=== PATIENT | female | born 1960 | race Caucasian/White ===

== ENCOUNTER → 2017-02-19 | Outpatient (CLI) | payer BC, SELFPAY | END | disposition home or self-care (01) | LOC: RAD.S 08:00 | DX: R10.9 Unspecified abdominal pain (principal); K80.80 Other cholelithiasis without obstruction; K76.0 Fatty (change of) liver, not elsewhere classified ==

== ENCOUNTER 2017-03-03 03:05 | Emergency (ER) | payer BC, SELFPAY ==
--- NOTE | 2017-03-03 19:21 | ER ---
ADMIT: 03/03/2017 RM/LOC: ER [facility] MR#: [id number] [facility] [address] [place] [id number] MARGRET BUTLER [address] [place] [address] Emergency Room Report SEX: F AGE: 56 : 1960 DATE: 03/03/2017 The patient is a 56-year-old Monegasque-speaking female, complaining of right upper quadrant pain, associated with nausea and vomiting intermittently for the past month. Ultrasound on February 19 showed multiple stones but negative Barnard's sign. The patient does admit to biliary colic symptoms with high fat, high-protein foods. Exam remarkable for moderately uncomfortable, afebrile obese female, tender right upper quadrant. Normal CBC, CMP, lipase. Elevated CRP of 1.17. Normal lactic 1.7. UA showed 1+ leukocyte esterase and [address] unremarkable. The patient was given Zofran, Toradol, Dilaudid with marked improvement. Home with low-fat and low-protein diet, hydrocodone 5/325 as needed, #20 plus #6, Macrobid 50 mg b.i.d., #20. Follow up with Dr. Edgar next week. Kavin Pulido MD/ ralph JOB #: [id number] CC: Kavin Pulido MD, Attending Physician Laura Dominguez, Family Physician Radha Edgar MD
== END 2017-03-03 06:21 | disposition home or self-care (01) ==
LOC: ER 03:05
DX: K80.50 Calculus of bile duct without cholangitis or cholecystitis without obstruction (principal); N39.0 Urinary tract infection, site not specified; I10 Essential (primary) hypertension; E11.9 Type 2 diabetes mellitus without complications; Z88.0 Allergy status to penicillin; Z79.4 Long term (current) use of insulin; Z79.899 Other long term (current) drug therapy